=== PATIENT | female | born 1960 | race Caucasian/White ===

== ENCOUNTER 2018-10-17 00:11 | Inpatient (IN) | payer BC ==
[~2018-10-17] VITALS: Ht 170.2 cm; Wt 52.3 kg
[2018-10-17] VITALS (7 sets, daily range): BP systolic 103–116; BP diastolic 57–67; Ht 170.2 cm; Wt 52.3 kg
[2018-10-17] MEDS ORDERED: SPIRIVA18 MCG INH (00:16)
[2018-10-17] MEDS ORDERED: SYMBICORT 16010.2 GM INH (00:16)
[2018-10-17] MEDS ORDERED: REMICADE INJ100 MG (00:16)
--- NOTE | 2018-10-17 00:35 | NUR ---
PT LEFT ED VIA WC FOR CT.
[2018-10-17 00:37] LABS: HEMATOCRIT 41.3 % (36.0-48.0); HEMOGLOBIN 14.4 g/dL (12-16); LYMPHOCYTES 25.5 % (15-50); MCH 34.5 pg (26.0-34.0); MCHC 34.9 g/dL (31.0-37.0); MEAN PLATELET VOLUME 9.3 fL (7.4-10.4); NEUTROPHILS 67.8 % (40-80); PLATELET COUNT 212 10x3/uL (130-400); RBC 4.17 10x6/uL (4.00-5.40); RDW 11.9 % (11.5-14.5); WBC 14.9 10x3/uL (4.8-10.8)
--- NOTE | 2018-10-17 00:48 | NUR ---
PT RETURNED FROM CT VIA WC.
[2018-10-17 00:53] LABS: ALKALINE PHOSPHATASE 68 U/L (46-116); ALT (SGPT) 16 U/L (10-68); AMYLASE - SERUM 47 U/L (25-115); BILIRUBIN - TOTAL 0.47 mg/dL (0.2-1.3); CALC OSMOLALITY 265 mosm/kg (275-300); CALCIUM 8.8 mg/dL (8.5-10.1); CARBON DIOXIDE 24.5 mmol/L (21.0-32.0); CHLORIDE - SERUM 97 mmol/L (98-107); CREATININE - SERUM 0.5 mg/dL (0.6-1.3); GLUCOSE 101 mg/dL (74-106); LIPASE 153 U/L (73-393); POTASSIUM - SERUM 3.6 mmol/L (3.5-5.1); PROTEIN - SERUM 8.1 g/dL (6.4-8.2); SODIUM 134 mmol/L (136-145); UREA NITROGEN 6 mg/dL (7-18); eGFR NON AFRICAN AMERICAN > 90 mL/min (90-120)
--- NOTE | 2018-10-17 01:22 | NUR ---
LAB AT PT BEDSIDE OBTAINING BLOOD CULTURES.
[2018-10-17 01:23] LABS: APPEARANCE CLEAR (CLEAR); COLOR YELLOW (YELLOW); SPECIFIC GRAVITY 1.005 (1.005-1.020)
[2018-10-17 01:24] LABS: BILIRUBIN NEGATIVE (NEGATIVE); GLUCOSE NEGATIVE (NEGATIVE); KETONE NEGATIVE (NEGATIVE); NITRITE NEGATIVE (NEGATIVE); PH 5.5 (5.0-6.0); PROTEIN NEGATIVE (NEGATIVE); UROBILINOGEN NORMAL (NORMAL)
--- NOTE | 2018-10-17 01:33 | NUR ---
BLOOD CULTURES OBTAINED, ROCEPHIN INFUSION STARTED AT THIS TIME.
--- NOTE | 2018-10-17 02:09 | NUR ---
PT CONTINUES TO C/O PAIN. PAIN RATED 10/10. PRN DILAUDID ADMINISTERED.
--- NOTE | 2018-10-17 02:28 | NUR ---
PT LEFT ED VIA WC FOR CTA PER PE PROTOCOL. PT WILL BE TAKEN TO INPATIENT ROOM FOLLOWING SCAN.
--- NOTE | 2018-10-17 03:06 | NUR ---
PATIENT ARRIVED TO UNIT VIA WHEELCHAIR. PATIENT IS ALERT AND ORIENTED, RESTING COMFORTABLY IN BED. RESPIRATIONS ARE EVEN AND UNLABORED. NO DISTRESS. NO C/O PAIN. CALL LIGHT WITHIN REACH. WILL CPOC.
--- NOTE | 2018-10-17 07:00 | NUR ---
RECIEVED REPORT. ASSUMED CARE OF PATIENT. CALL LIGHT IN PATIENT HANDS. RESP EVEN AND UNLABORED. RESTING WITH EYES CLOSED. NO DISTRESS.
--- NOTE | 2018-10-17 09:12 | NUR ---
MEDICATED FOR BACK PAIN AT THIS TIME. NO DISTRESS.
--- NOTE | 2018-10-17 16:42 | MORECARE ---
CASE MANAGEMENT DISCHARGE SUMMARY PATIENT: COLUMBA PHILLIP UNIT: [id number] ADM DATE: 10/17/18 AGE: 58 : 62 SEX: F ROOM/BED: D.5036 AUTHOR: REGINA,DOC PHYSICIAN: REFERRING PHYSICIAN: SABRINA AVILA MD DATE OF SERVICE: 10/17/18 Discharge Plan Patient Name: COLUMBA PHILLIP Facility: [facility]:[place] : 1960 Planned Disposition: Home Anticipated Discharge Date: Discharge Date: Expected LOS: Initial Reviewer: [email or web address] Initial Review Date: 10/17/2018 Generated: 10/17/18 5:42 pm Comments DCP- Discharge Planning Updated by [email or web address]: Henri Levine on 10/17/18 3:[address] Patient Name: COLUMBA PHILLIP Admission Status: ER Accout number: [id number] Admission Date: 10-17-2018 : 1960 Admission Diagnosis: Attending: SABRINA AVILA Current LOS: 1 Anticipated DC Date: Planned Disposition: Home Primary Insurance: [employer] TRUE BLUE PPO Discharge Planning Comments: CM MET WITH PT IN ROOM TO DISCUSS DISCHARGE PLANNING AND NEEDS. PT REPORTS LIVING AT HOME INDEPENDENTLY WITH HER . PT HAS NO MEDICAL EQUIPMENT AND NO OUTSIDE SERVICES ASSISTING IN THE HOME. CM DISCUSSED AVAILABILITY OF HOME HEALTH, REHAB SERVICES AND MEDICAL EQUIPMENT. PT DENIES DISCHARGE NEEDS, REPORTS HER WILL PICK HER UP FOR DISCHARGE HOME. PT PLANS TO DISCHARGE HOME WITH , HAS NO ANTICIPATED DISCHARGE NEEDS, TO TRANSPORT HOME AT DISCHARGE. CM TO FOLLOW AND ASSIST IF NEEDED. Partition Notcher: Henri Levine DCPIA - Discharge Planning Initial Assessment Updated by [id number]: Henri Levine on 10/17/18 4:37 pm * Is the patient Alert and Oriented? Yes * How many steps to enter\exit or inside your home? NONE * PCP NONE * Pharmacy [facility] * Preadmission Environment Home with Family * ADLs Independent * Equipment None * Other Equipment NO MEDICAL EQUIPMENT PROVIDER PREFERENCE * List name and contact numbers for known caregivers / representatives who currently or will assist patient after discharge: JOHN LEE, , * Verbal permission to speak to the caregivers and representatives has been obtained from the patient. N/A * Community resources currently utilized None * Please name any agencies selected above. NONE * Additional services required to return to the preadmission environment? No * Can the patient safely return to the preadmission environment? Yes * Has this patient been hospitalized within the prior 30 days at any hospital? No Patient Name: COLUMBA PHILLIP Page [id number] at 1642 All edits/amendments must be made on the electronic document DICTATION DATE: 10/17/181641 VICE PRESIDENT SALES AND MARKETING: MAURICE 10/17/181641 RPT#: [id number] DC DATE: STATUS: ADM IN [facility] [address] [place] [address] END OF REPORT
--- NOTE | 2018-10-17 19:15 | NUR ---
PT IS AAO, RESTING IN BED. FAMILY AT BEDSIDE. PT IS ON 2L O2 NC. COUGHING FREQUENTLY STATES SPUTUM IS GREEN. RIGHT AC 20G NS INFUSING AT 30ML/HR. PT LUNGS UPPER LOBES CLEAR LOWER LOBES HAVE RHONCI AND EXHALE WHEEZES ON RLL AND LLL. PT DENIES ANY NEEDS AT THIS TIME. NO S/S OF DISTRESS. BEDLOW AND CALL LIGHT IN REACH. NAME AND DATE PLACED ON BOARD. WILL CPOC
--- NOTE | 2018-10-17 20:01 | NUR ---
PT COMPLAINS OF A HEADACHE. WILL CHECK ORDERS. DENIES ANY OTHER NEEDS. WILL CPOC
--- NOTE | 2018-10-17 20:27 | NUR ---
ROCEPHIN DUE Q24 HOURS. GIVEN NOW. WILL RETIME MEDICATION.
--- NOTE | 2018-10-17 20:31 | NUR ---
TYLENOL GIVEN FOR HEADACHE. PT DENIES ANY OTHER NEEDS. WILL CPOC
--- NOTE | 2018-10-17 21:24 | NUR ---
NEW ORDERS OF MEDICATION GIVEN. EDUCATED PT IN MEDICATION. PT VERBALIZED UNDERSTANDING. DENIES ANY OTHER NEEDS.WILL CPOC
--- NOTE | 2018-10-17 22:31 | NUR ---
RIGHT AC HAS INDURATION AND IS TENDER. REMOVED WITH CATH INTACT. PLACED A 20G PIV INTO RIGHT FOREARM ONE ATTEMPT. PT DENIES ANY DISCOMFORT. WILL CPOC
[2018-10-18] VITALS: BP 108/64
--- NOTE | 2018-10-18 00:16 | NUR ---
EXPLAINED TO PT NEED FOR SPUTUM AND URINE. PT VERBALIZED UNDERSTANDING. CONTAINER GIVEN FOR SPUTUM AND URINE. EXPLAINED TO PT PROPER COLLECTION METHOD. PT VERBALIZED UNDERSTANDING. WILL CPOC
--- NOTE | 2018-10-18 04:03 | NUR ---
SOLU MED AND PROTONIX GIVEN PT VERBALIZED UNDERSTANDING OF MEDICATION. PT COMPLAINS OF 7/10 PAIN IN RIGHT LUNG. 1MG GIVEN ORDERED. PT DENIES ANY OTHER NEEDS. WILL CPOC
[2018-10-18 04:30] VITALS: BP 111/747
[2018-10-18 04:54] LABS: CALCIUM 8.4 mg/dL (8.5-10.1); CARBON DIOXIDE 30.6 mmol/L (21.0-32.0); CHLORIDE - SERUM 101 mmol/L (98-107); CREATININE - SERUM 0.5 mg/dL (0.6-1.3); SODIUM 134 mmol/L (136-145); eGFR NON AFRICAN AMERICAN > 90 mL/min (90-120)
[2018-10-18 04:58] LABS: BASOPHILS 0.1 % (0-2); EOSINOPHILS 0 % (0-7); HEMATOCRIT 36.6 % (36.0-48.0); HEMOGLOBIN 12.3 g/dL (12-16); IMMATURE GRANULOCYTES 0.2 % (0-5); LYMPHOCYTES 13.1 % (15-50); MCHC 33.6 g/dL (31.0-37.0); MEAN PLATELET VOLUME 10.2 fL (7.4-10.4); NEUTROPHILS 85.6 % (40-80); PLATELET COUNT 204 10x3/uL (130-400); RBC 3.62 10x6/uL (4.00-5.40); RDW 11.9 % (11.5-14.5)
[2018-10-18 04:59] LABS: MCV 101.1 fL (80.0-100.0); WBC 8.8 10x3/uL (4.8-10.8)
[2018-10-18 05:01] LABS: CALC OSMOLALITY 269 mosm/kg (275-300); GLUCOSE 165 mg/dL (74-106); UREA NITROGEN 8 mg/dL (7-18)
--- NOTE | 2018-10-18 08:13 | NUR ---
ASSESSMENT DONE. DENIES NEEDS.
[2018-10-18 08:40] VITALS: BP 100/59
[2018-10-18 12:30] VITALS: BP 107/64
[2018-10-18 16:36] VITALS: BP 111/72
--- NOTE | 2018-10-18 17:35 | NUR ---
WITHOUT CHANGES OR DISTRESS NOTED AT THIS TIME. QUIN NEEDS.
[2018-10-18 20:00] VITALS: BP 120/62
[2018-10-19 00:30] VITALS: BP 125/65
--- NOTE | 2018-10-19 02:19 | NUR ---
IV TO RIGHT FOREARM SWOLLEN. IV CATH REMOVED, TIP INTACT. RESITED IV TO LEFT FOREARM, 20 GUAGE, FIRST ATTEMPT. PT TOLERATED WELL. ABX RESUMED.
--- NOTE | 2018-10-19 03:22 | NUR ---
RESTING WITH EYES CLOSED, RESPERATIONS EVEN, NO S/S DISTRESS NOTED.
[2018-10-19 04:20] VITALS: BP 120/65
[2018-10-19 06:04] LABS: BASOPHILS 0.1 % (0-2); EOSINOPHILS 0 % (0-7); HEMATOCRIT 35.4 % (36.0-48.0); HEMOGLOBIN 11.9 g/dL (12-16); IMMATURE GRANULOCYTES 0.3 % (0-5); LYMPHOCYTES 12.1 % (15-50); MCH 33.6 pg (26.0-34.0); MCHC 33.6 g/dL (31.0-37.0); MEAN PLATELET VOLUME 10.2 fL (7.4-10.4); MONOCYTES 7.5 % (2-11); PLATELET COUNT 215 10x3/uL (130-400); RBC 3.54 10x6/uL (4.00-5.40); RDW 11.9 % (11.5-14.5)
[2018-10-19 06:18] LABS: WBC 11.6 10x3/uL (4.8-10.8)
[2018-10-19 06:24] LABS: CALC OSMOLALITY 274 mosm/kg (275-300); CALCIUM 9.2 mg/dL (8.5-10.1); CARBON DIOXIDE 28.5 mmol/L (21.0-32.0); CHLORIDE - SERUM 102 mmol/L (98-107); CREATININE - SERUM 0.5 mg/dL (0.6-1.3); GLUCOSE 136 mg/dL (74-106); POTASSIUM - SERUM 4.4 mmol/L (3.5-5.1); SODIUM 137 mmol/L (136-145); eGFR NON AFRICAN AMERICAN > 90 mL/min (90-120)
[2018-10-19 06:35] LABS: UREA NITROGEN 11 mg/dL (7-18)
[2018-10-19 08:23] VITALS: BP 114/70
[2018-10-19 09:14] LABS: IMMUNOGLOBULIN A 295 mg/dL (87-352); IMMUNOGLOBULIN G 1153 mg/dL (700-1600)
--- NOTE | 2018-10-19 11:05 | NUR ---
ASSESSMENT DONE. NO DISTRESS NOTED. DENIES NEEDS AT THIS TIME. CALL LIGHT WITHIN REACH. BED AT LOWEST POSITION. WILL CONTINUE TO MONITOR.
[2018-10-19 11:29] VITALS: BP 115/72
[2018-10-19 15:58] VITALS: BP 145/75
--- NOTE | 2018-10-19 19:34 | NUR ---
AWAKE AND ALERT AND ON LIGHT FOR PAIN MED PT WILL RECIEVE DILAUDID IV LUNGS WITH SOME UPPER INSPIROTORY WHEEZE SKIN WARM AND DRY AND BOWEL SOUNDS X4
[2018-10-19 20:00] VITALS: BP 130/67
[2018-10-20] VITALS: BP 128/70
--- NOTE | 2018-10-20 03:58 | NUR ---
PT IS AAO. COMPLAINS OF PAIN. DILAUDID GIVEN ORDERED.
[2018-10-20 04:00] VITALS: BP 137/79
--- NOTE | 2018-10-20 04:11 | NUR ---
I have reviewed this patient and I concur with the Shift Assessment completed by the Licensed Practical Nurse today this shift.
[2018-10-20 06:47] LABS: CALC OSMOLALITY 278 mosm/kg (275-300); CALCIUM 9.5 mg/dL (8.5-10.1); CARBON DIOXIDE 29.6 mmol/L (21.0-32.0); CHLORIDE - SERUM 102 mmol/L (98-107); CREATININE - SERUM 0.4 mg/dL (0.6-1.3); GLUCOSE 131 mg/dL (74-106); POTASSIUM - SERUM 4.2 mmol/L (3.5-5.1); SODIUM 138 mmol/L (136-145); eGFR NON AFRICAN AMERICAN > 90 mL/min (90-120)
[2018-10-20 06:52] LABS: UREA NITROGEN 14 mg/dL (7-18)
[2018-10-20 07:02] LABS: BASOPHILS 0 % (0-2); EOSINOPHILS 0 % (0-7); HEMATOCRIT 36.6 % (36.0-48.0); HEMOGLOBIN 12.3 g/dL (12-16); IMMATURE GRANULOCYTES 0.2 % (0-5); MCH 33.6 pg (26.0-34.0); MCHC 33.6 g/dL (31.0-37.0); MEAN PLATELET VOLUME 9.9 fL (7.4-10.4); MONOCYTES 5.8 % (2-11); RBC 3.66 10x6/uL (4.00-5.40); RDW 11.8 % (11.5-14.5); WBC 8.9 10x3/uL (4.8-10.8)
[2018-10-20 07:07] LABS: PLATELET COUNT 322 10x3/uL (130-400)
[2018-10-20 07:25] LABS: IGG SUBCLASS 1 755 mg/dL (248-810); IGG SUBCLASS 2 271 mg/dL (130-555); IGG SUBCLASS 3 42 mg/dL (15-102); IGG SUBCLASS 4 4 mg/dL (2-96)
--- NOTE | 2018-10-20 07:42 | NUR ---
ASSESSMENT COMPLETED. ALERT AND ORIENTED. 02 AT 2 L/M PER NC. LEFT FA SL. PT IS UP AB MAGGIE. DENIES ANY NEEDS. . WILL MONITOR
[2018-10-20 08:28] VITALS: BP 115/89
[2018-10-20] MEDS ORDERED: ZITHROMAX250 MG PO (09:26)
[2018-10-20] MEDS ORDERED: OMNICEF300 MG PO (09:26)
[2018-10-20] MEDS ORDERED: IPRAT-ALBUT 0.5-3 ML INH (09:26)
[2018-10-20] MEDS ORDERED: SINGULAIR10 MG PO (09:27)
[2018-10-20] MEDS ORDERED: Tessalon Perle PO (09:27)
[2018-10-20] MEDS ORDERED: PULMICORT0.5 MG/21 UPD (09:27)
--- NOTE | 2018-10-20 09:44 | MORECARE ---
CASE MANAGEMENT DISCHARGE SUMMARY PATIENT: COLUMBA PHILLIP UNIT: [id number] ADM DATE: 10/17/18 AGE: 58 : 62 SEX: F ROOM/BED: D.9888 AUTHOR: REGINA,DOC PHYSICIAN: REFERRING PHYSICIAN: SABRINA AVILA MD DATE OF SERVICE: 10/20/18 Discharge Plan Patient Name: COLUMBA PHILLIP Facility: [facility]:[place] : 1960 Planned Disposition: Home Anticipated Discharge Date: 10/20/18 Discharge Date: Expected LOS: 3 Initial Reviewer: [email or web address] Initial Review Date: 10/17/2018 Generated: 10/20/18 10:44 am Comments DCP- Discharge Planning Updated by [email or web address]: Henri Levine on 10/17/18 3:[address] Patient Name: COLUMBA PHILLIP Admission Status: ER Accout number: [id number] Admission Date: 10-17-2018 : 1960 Admission Diagnosis: Attending: SABRINA AVILA Current LOS: 1 Anticipated DC Date: Planned Disposition: Home Primary Insurance: [employer] BLUE PPO Discharge Planning Comments: CM MET WITH PT IN ROOM TO DISCUSS DISCHARGE PLANNING AND NEEDS. PT REPORTS LIVING AT HOME INDEPENDENTLY WITH HER . PT HAS NO MEDICAL EQUIPMENT AND NO OUTSIDE SERVICES ASSISTING IN THE HOME. CM DISCUSSED AVAILABILITY OF HOME HEALTH, REHAB SERVICES AND MEDICAL EQUIPMENT. PT DENIES DISCHARGE NEEDS, REPORTS HER WILL PICK HER UP FOR DISCHARGE HOME. PT PLANS TO DISCHARGE HOME WITH , HAS NO ANTICIPATED DISCHARGE NEEDS, TO TRANSPORT HOME AT DISCHARGE. CM TO FOLLOW AND ASSIST IF NEEDED. Psychometrist: Henri Levine DCPIA - Discharge Planning Initial Assessment Updated by [email or web address]: Henri Levine on 10/17/18 4:37 pm * Is the patient Alert and Oriented? Yes * How many steps to enter\exit or inside your home? NONE * PCP NONE * Pharmacy [facility] [place] * Preadmission Environment Home with Family * ADLs Independent * Equipment None * Other Equipment NO MEDICAL EQUIPMENT PROVIDER PREFERENCE * List name and contact numbers for known caregivers / representatives who currently or will assist patient after discharge: JOHN LEE, , * Verbal permission to speak to the caregivers and representatives has been obtained from the patient. N/A * Community resources currently utilized None * Please name any agencies selected above. NONE * Additional services required to return to the preadmission environment? No * Can the patient safely return to the preadmission environment? Yes * Has this patient been hospitalized within the prior 30 days at any hospital? No External Providers External Provider: [facility] Patient-[place] Next Contact Date: 10/20/2018 Service Request Date: Service Type: Resolution: Reviewer: Comments: Last DP export: 10/17/18 3:42 pm Patient Name: COLUMBA PHILLIP Page [phone] at 0944 All edits/amendments must be made on the electronic document DICTATION DATE: 10/20/18943 COOK SHIP: MAURICE 10/20/18943 RPT#: [id number] DC DATE: STATUS: ADM IN [facility] [address] [place] [address] END OF REPORT
--- NOTE | 2018-10-20 09:59 | MORECARE ---
CASE MANAGEMENT DISCHARGE SUMMARY PATIENT: COLUMBA PHILLIP UNIT: [id number] ADM DATE: 10/17/18 AGE: 58 : 62 SEX: F ROOM/BED: D.1596 AUTHOR: REGINA,DOC PHYSICIAN: REFERRING PHYSICIAN: SABRINA AVILA MD DATE OF SERVICE: 10/20/18 Discharge Plan Patient Name: COLUMBA PHILLIP Facility: [facility]:[place] : 1960 Planned Disposition: Home Anticipated Discharge Date: 10/20/18 Discharge Date: Expected LOS: 3 Initial Reviewer: [email or web address] Initial Review Date: 10/17/2018 Generated: 10/20/18 10:59 am Comments DCP- Discharge Planning Updated by [email or web address]: Henri Levine on 10/20/18 8:[address] Patient Name: COLUMBA PHILLIP Encounter No: [id number] : 1960 Primary Insurance: [employer] OUT OF STATE Anticipated DC Date: 10-20-2018 Planned Disposition: Home DCP follow-up note: CM RECEIVED ORDER FOR NEBULIZER, CM MET WITH PT IN ROOM TO DISCUSS DISCHARGE NEEDS AND PLANNING. CM DISCUSSED AVAILABILITY OF HOME HEALTH, REHAB SERVICES AND MEDICAL EQUIPMENT. PROVIDER LISTING FOR MEDICAL EQUIPMENT COMPANIES PROVIDED. PT SIGNED CHOICE FOR [facility] AND SECOND CHOICE OF NO PREFERENCE ON PROVIDER. PT DENIES FURTHER DISCHARGE NEEDS. TO TRANSPORT HOME AT DISCHARGE. CM CALLED [facility], THEY DO NOT HAVE NEBULIZER IN STOCK. CM CALLED [facility], , SPOKE TO YUDI AND PROVIDED REFERRAL INFORMATION. CM FAXED REFERRAL TO [facility], . CM REQUESTED HOSPITAL DELIVERY TODAY FOR DISCHARGE HOME. [facility] TO DELIVER NEBULIZER TO PT'S ROOM FOR DISCHARGE HOME TODAY. DAYANA Ortega DCP- Discharge Planning Updated by [email or web address]: Henri Levine on 10/17/18 3:[address] Patient Name: COLUMBA PHILLIP Admission Status: ER Accout number: [id number] Admission Date: 10-17-2018 : 1960 Admission Diagnosis: Attending: SABRINA AVILA Current LOS: 1 Anticipated DC Date: Planned Disposition: Home Primary Insurance: [employer] BLUE PPO Discharge Planning Comments: CM MET WITH PT IN ROOM TO DISCUSS DISCHARGE PLANNING AND NEEDS. PT REPORTS LIVING AT HOME INDEPENDENTLY WITH HER . PT HAS NO MEDICAL EQUIPMENT AND NO OUTSIDE SERVICES ASSISTING IN THE HOME. CM DISCUSSED AVAILABILITY OF HOME HEALTH, REHAB SERVICES AND MEDICAL EQUIPMENT. PT DENIES DISCHARGE NEEDS, REPORTS HER WILL PICK HER UP FOR DISCHARGE HOME. PT PLANS TO DISCHARGE HOME WITH , HAS NO ANTICIPATED DISCHARGE NEEDS, TO TRANSPORT HOME AT DISCHARGE. CM TO FOLLOW AND ASSIST IF NEEDED. Motorcycle Engine Assembler: Henri Levine DCPIA - Discharge Planning Initial Assessment Updated by [email or web address]: Henri Levine on 10/17/18 4:37 pm * Is the patient Alert and Oriented? Yes * How many steps to enter\exit or inside your home? NONE * PCP NONE * Pharmacy [facility] [place] * Preadmission Environment Home with Family * ADLs Independent * Equipment None * Other Equipment NO MEDICAL EQUIPMENT PROVIDER PREFERENCE * List name and contact numbers for known caregivers / representatives who currently or will assist patient after discharge: JOHN LEE, , * Verbal permission to speak to the caregivers and representatives has been obtained from the patient. N/A * Community resources currently utilized None * Please name any agencies selected above. NONE * Additional services required to return to the preadmission environment? No * Can the patient safely return to the preadmission environment? Yes * Has this patient been hospitalized within the prior 30 days at any hospital? No Coverage Notice Reviewer: [id number] - Henri Levine Notice Issued Date-Time: 10/20/2018 9:35 Notice Type: Patient Choice Letter Notice Delivered To: Patient Relationship to Patient: Veterinary Toxicologist Name: Delivery Method: HAND - Hand Delivered Almita Days: Prior Verbal Notification: Recipient Understood Notice: Yes Recipient Signature: Yes Med Rec Note Co-signed by Attending: Coverage Notice Comment: [facility] OR NO PROVIDER PREFERENCE Last DP export: 10/20/18 8:44 am Patient Name: COLUMBA PHILLIP Page [phone] at 0959 All edits/amendments must be made on the electronic document DICTATION DATE: 10/20/18958 SUPERVISOR BRIAR SHOP: MAURICE 10/20/18958 RPT#: [id number] DC DATE: STATUS: ADM IN [facility] [address] [place] [address] END OF REPORT
[2018-10-20 12:34] VITALS: BP 120/66
[2018-10-20] MEDS ORDERED: TRELEGY ELLIPT1 EACH INH ×2 (13:46→13:59)
[2018-10-20] MEDS ORDERED: MUCINEX DM ER1 EAC1 PO (13:46)
[2018-10-20] MEDS ORDERED: STERAPRED DS 1210 MG PO (13:49)
--- NOTE | 2018-10-20 15:04 | NUR ---
PT DISCHARGED. IV DCD WITH TIP INTACK. INSTRUCTIONS GIVEN TO PT. AWAITING NEBULIZER TO BE DELIVERED
--- NOTE | 2018-10-20 16:00 | NUR ---
PT DISCHARGED. NEBULIZER GIVEN TO PT. . TO PRIVATE CAR PER WHEELCHAIR.
[2018-10-21 03:08] LABS: MYCOPLASMA PNEUMO IGG 754 U/mL (0-99)
--- NOTE | 2018-10-22 19:11 | MORECARE ---
CASE MANAGEMENT DISCHARGE SUMMARY PATIENT: COLUMBA PHILLIP UNIT: [id number] ADM DATE: 10/17/18 AGE: 58 : 62 SEX: F ROOM/BED: D.3442 AUTHOR: REGINADOC PHYSICIAN: REFERRING PHYSICIAN: SABRINA AVILA MD DATE OF SERVICE: 10/22/18 Discharge Plan Patient Name: COLUMBA PHILLIP Facility: [facility] : 1960 Planned Disposition: Home Anticipated Discharge Date: 10/20/18 Discharge Date: 10/20/2018 Expected LOS: 3 Initial Reviewer: [email or web address] Initial Review Date: 10/17/2018 Generated: 10/22/18 8:11 pm Comments DCP- Discharge Planning Updated by [email or web address]: Henri Levine on 10/20/18 8:[address] Patient Name: COLUMBA PHILLIP Encounter No: [id number] : 1960 Primary Insurance: [employer] OUT OF STATE Anticipated DC Date: 10-20-2018 Planned Disposition: Home DCP follow-up note: CM RECEIVED ORDER FOR NEBULIZER, CM MET WITH PT IN ROOM TO DISCUSS DISCHARGE NEEDS AND PLANNING. CM DISCUSSED AVAILABILITY OF HOME HEALTH, REHAB SERVICES AND MEDICAL EQUIPMENT. PROVIDER LISTING FOR MEDICAL EQUIPMENT COMPANIES PROVIDED. PT SIGNED CHOICE FOR [facility] AND SECOND CHOICE OF NO PREFERENCE ON PROVIDER. PT DENIES FURTHER DISCHARGE NEEDS. TO TRANSPORT HOME AT DISCHARGE. CM CALLED [facility], THEY DO NOT HAVE NEBULIZER IN STOCK. CM CALLED [facility], , SPOKE TO YUDI AND PROVIDED REFERRAL INFORMATION. CM FAXED REFERRAL TO [facility], . CM REQUESTED HOSPITAL DELIVERY TODAY FOR DISCHARGE HOME. [facility] TO DELIVER NEBULIZER TO PT'S ROOM FOR DISCHARGE HOME TODAY. DAYANA Ortega DCP- Discharge Planning Updated by [id number]: Henri Levine on 10/17/18 3:[address] Patient Name: COLUMBA PHILLIP Admission Status: ER Accout number: [id number] Admission Date: 10-17-2018 : 1960 Admission Diagnosis: Attending: SABRINA AVILA Current LOS: 1 Anticipated DC Date: Planned Disposition: Home Primary Insurance: [employer] BLUE PPO Discharge Planning Comments: CM MET WITH PT IN ROOM TO DISCUSS DISCHARGE PLANNING AND NEEDS. PT REPORTS LIVING AT HOME INDEPENDENTLY WITH HER . PT HAS NO MEDICAL EQUIPMENT AND NO OUTSIDE SERVICES ASSISTING IN THE HOME. CM DISCUSSED AVAILABILITY OF HOME HEALTH, REHAB SERVICES AND MEDICAL EQUIPMENT. PT DENIES DISCHARGE NEEDS, REPORTS HER WILL PICK HER UP FOR DISCHARGE HOME. PT PLANS TO DISCHARGE HOME WITH , HAS NO ANTICIPATED DISCHARGE NEEDS, TO TRANSPORT HOME AT DISCHARGE. CM TO FOLLOW AND ASSIST IF NEEDED. Cook Fish Eggs: Henri Levine DCPIA - Discharge Planning Initial Assessment Updated by [email or web address]: Henri Levine on 10/17/18 4:37 pm * Is the patient Alert and Oriented? Yes * How many steps to enter\exit or inside your home? NONE * PCP NONE * Pharmacy [facility] * Preadmission Environment Home with Family * ADLs Independent * Equipment None * Other Equipment NO MEDICAL EQUIPMENT PROVIDER PREFERENCE * List name and contact numbers for known caregivers / representatives who currently or will assist patient after discharge: JOHN LEE, , * Verbal permission to speak to the caregivers and representatives has been obtained from the patient. N/A * Community resources currently utilized None * Please name any agencies selected above. NONE * Additional services required to return to the preadmission environment? No * Can the patient safely return to the preadmission environment? Yes * Has this patient been hospitalized within the prior 30 days at any hospital? No Coverage Notice Reviewer: [email or web address] - Henri Levine Notice Issued Date-Time: 10/20/2018 9:35 Notice Type: Patient Choice Letter Notice Delivered To: Patient Relationship to Patient: Duct Layer Helper Name: Delivery Method: HAND - Hand Delivered Almita Days: Prior Verbal Notification: Recipient Understood Notice: Yes Recipient Signature: Yes Med Rec Note Co-signed by Attending: Coverage Notice Comment: [facility] OR NO PROVIDER PREFERENCE Last DP export: 10/20/18 8:59 am Patient Name: COLUMBA PHILLIP Page 82043 at 1911 All edits/amendments must be made on the electronic document DICTATION DATE: 10/22/181909 PROJECTION TECHNICIAN: MAURICE 10/22/181909 RPT#: [id number] DC DATE:10/20/18 STATUS: DIS IN [facility] [address] [place] [address] END OF REPORT
== END 2018-10-20 16:02 | disposition home or self-care (01) | DRG 194 ==
LOC: D.ER 00:11 → D.M2 01:40
PROVIDERS: Family Medicine; Internal Medicine Pulmonary Disease; ADMIT Internal Medicine Nephrology; ATTEND Internal Medicine Nephrology
DX: J18.1 Lobar pneumonia, unspecified organism (principal); N17.9 Acute kidney failure, unspecified; E87.1 Hypo-osmolality and hyponatremia; K50.90 Crohn's disease, unspecified, without complications; J45.901 Unspecified asthma with (acute) exacerbation; F17.213 Nicotine dependence, cigarettes, with withdrawal; J44.1 Chronic obstructive pulmonary disease with (acute) exacerbation; J44.0 Chronic obstructive pulmonary disease with (acute) lower respiratory infection; F41.9 Anxiety disorder, unspecified; F10.10 Alcohol abuse, uncomplicated; R59.1 Generalized enlarged lymph nodes; K21.9 Gastro-esophageal reflux disease without esophagitis

== ENCOUNTER → 2019-01-05 10:34 | Outpatient (CLI) | payer BC ==
[2018-10-17 12:50] VITALS: BMI 17.9
[~2019-01-05 10:34] MED LIST: IPRAT-ALBUT 0.5-3 ML INH; MUCINEX DM ER1 EAC1 PO; OMNICEF300 MG PO; PULMICORT0.5 MG/21 UPD; REMICADE INJ100 MG; SINGULAIR10 MG PO; SPIRIVA18 MCG INH; STERAPRED DS 1210 MG PO; SYMBICORT 16010.2 GM INH; TRELEGY ELLIPT1 EACH INH; Tessalon Perle PO; ZITHROMAX250 MG PO
== END | disposition home or self-care (01) ==
LOC: D.RT 10:34
PROVIDERS: ATTEND Internal Medicine Pulmonary Disease
DX: J44.9 Chronic obstructive pulmonary disease, unspecified (principal); J45.909 Unspecified asthma, uncomplicated

== ENCOUNTER → 2020-01-22 15:44 | Outpatient (CLI) | payer BC ==
[2018-10-17 12:50] VITALS: BMI 17.9
== END | disposition home or self-care (01) ==
LOC: D.LAB 15:44
PROVIDERS: ATTEND Internal Medicine Pulmonary Disease
DX: J44.9 Chronic obstructive pulmonary disease, unspecified (principal)

== ENCOUNTER → 2020-01-25 15:15 | Outpatient (CLI) | payer BC ==
[2018-10-17 12:50] VITALS: BMI 17.9
== END | disposition home or self-care (01) ==
LOC: D.RT 12-28 14:00
PROVIDERS: ATTEND Internal Medicine Pulmonary Disease
DX: J44.9 Chronic obstructive pulmonary disease, unspecified (principal)

== ENCOUNTER → 2020-11-14 11:20 | Outpatient (CLI) | payer BC ==
[2018-10-17 12:50] VITALS: BMI 17.9
== END | disposition home or self-care (01) ==
LOC: D.LAB 11:20
PROVIDERS: ATTEND Internal Medicine Pulmonary Disease
DX: J44.9 Chronic obstructive pulmonary disease, unspecified (principal)